=== PATIENT | male | born 1990 | race Caucasian/White ===

== ENCOUNTER 2019-03-22 21:40 | Emergency (ER) | payer OTHER ==
[2019-03-22] MEDS ORDERED: AMOXIL 500 MG PO ONE (22:08)
[2019-03-22] MEDS ORDERED: MAALOX ES 30 ML UNIT DOSE PO ONE (22:08)
[2019-03-22] MEDS ORDERED: XYLOCAINE VISCOUS 2% 20 ML CUP PO ONE (22:08)
[2019-03-22] MEDS ORDERED: CETACAINE SPRAY TP ONE (22:08)
--- NOTE | 2019-03-22 22:15 | ERPHSYRPT ---
- History of Present Illness Time Seen by Provider: 03/22/19 22:03 Source: patient Exam Limitations: no limitations Patient Subjective Stated Complaint: pt states he cracked a tooth a few weeks ago and has been having increased pain today and yesterday. Triage Nursing Assessment: pt alert and oriented, answers questions approp. pt ambulatory with steady gait noted. respirations nonlabored with lungs cta. pt reports pain in rt lower jaw, back tooth. Physician History: Pt started c/o tooth aches 3 days ago, he apparently chipped his right lower molar tooth weeks ago. He denies recent dental visit, surgery, no fever, headaches, he states, he vomited few times. Timing/Duration: gradual onset Severity: severe ENT Location: dental Prearrival Treatment: over the counter meds Modifying Factors: Improves With: nothing Associated Symptoms: jaw pain, tooth pain Allergies/Adverse Reactions: No Known Drug Allergies Allergy (Verified 03/22/19 21:59) Home Medications: Escitalopram Oxalate 10 mg [Lexapro 10 MG] 10 mg PO DAILY 03/22/19 [History] Hx Tetanus, Diphtheria Vaccination/Date Given: Yes Hx Influenza Vaccination/Date Given: No Hx Pneumococcal Vaccination/Date Given: No Immunizations Up to Date: Yes - Review of Systems Constitutional: No Symptoms Ears, Nose, & Throat: Mouth Pain, No Throat Swelling, No Stridor Respiratory: No Symptoms Cardiac: No Symptoms Abdominal/Gastrointestinal: No Symptoms All Other Systems: Reviewed and Negative - Past Medical History Pertinent Past Medical History: No - Past Surgical History Past Surgical History: Yes Gastrointestinal: Hemorrhoidectomy, Hernia Repair Other Surgical History: hemorrhoid surgery december 2018, hernia repair as - Social History Smoking Status: Never smoker Exposure to second hand smoke: Yes Drug Use: none Patient Lives Alone: No - Nursing Vital Signs Nursing Vital Signs: Initial Vital Signs Temperature 97.3 F 03/22/19 21:51 Pulse Rate 75 03/22/19 21:51 Respiratory Rate 18 03/22/19 21:51 Blood Pressure 167/98 03/22/19 21:51 Pain Scale Pain Intensity 6 - Physical Exam General Appearance: no apparent distress Eye Exam: bilateral eye: normal inspection Nasal Exam: normal inspection Throat Exam: pharynx normal, dental tenderness (right, lower 2nd molar ( #31) chipped posterior cusp, no gum swelling, or lesion, no edema.) Neck Exam: normal inspection, non-tender, supple, trachea midline, No JVD, No lymphadenopathy (R), No lymphadenopathy (L) Cardiovascular/Respiratory Exam: chest non-tender, normal breath sounds, regular rate/rhythm, heart sounds normal Abdominal Exam: non-tender Neurologic Exam: alert, oriented x 3, normal mood/affect Skin Exam: normal color, warm, dry, No rash SpO2 Interpretation: normal O2 Delivery: Room Air - Course Nursing assessment & vital signs reviewed: Yes - Progress Progress: improved Progress Note: 03/22/19 22:13 Pt was given local anesthetic dental,balls, started on Amoxicillin and discharged on Zofran ODT, Cataflam 50 mg TID, to follow up with dentist this week. Counseled pt/family regarding: diagnosis, need for follow-up - Departure Departure Disposition: Home Clinical Impression: Dental caries Condition: Stable Critical Care Time: No Referrals: VALDEMAR PAEZ MD [Primary Care Provider] - Instructions: Tooth Decay, Adult (DC) Additional Instructions: Follow up with dentist! Return if severe pain, swelling, difficulty swallowing, fever> 102 F! Prescriptions: Ondansetron ODT 4 MG [Zofran Odt 4 mg] 4 mg PO Q6H PRN PRN #10 tab.rapdis PRN Reason: Nausea/Vomiting Amoxicillin 500 mg PO TID #30 capsule Diclofenac Sodium 50 mg [Voltaren 50 mg] 50 mg PO TID PRN #15 tablet.ec PRN Reason: Pain
[2019-03-22] MEDS ORDERED: AMOXIL 500 MG ONE (22:28)
[2019-03-22] MEDS ORDERED: MAALOX ES 30 ML UNIT DOSE ONE (22:28)
[2019-03-22] MEDS ORDERED: XYLOCAINE HCl Viscous ONE (22:30)
[2019-03-22 22:59] VITALS: BP 137/83; PULSE 76; O2SAT 99
== END 2019-03-22 23:05 | disposition home or self-care (01) ==
LOC: ED 21:40
DX: K02.9 Dental caries, unspecified (principal)
CPT/HCPCS: 99283; A9270-GY